=== PATIENT | male | born 1960 | race African-American/Black ===

== ENCOUNTER 2017-04-06 12:22 | Observation (INO) | payer OTHER ==
[~2017-04-06] VITALS: Ht 170.2 cm; Wt 186.0 kg
[~2017-04-06 12:22] MED LIST: ADVAIR 250/501 DISK IH; ADVAIR 500/501 DISK IH; ADVAIR HFA120 INHALA IH; ALDACTONE50 MG PO; AMLODIPINE BESY10 MG PO; APRESOLINE100 MG PO; APRESOLINE50 MG PO; AQUAPHOR OINTM105 GM TP; ASPIRIN325 MG PO; ASPIRIN81 M2 GT; ASPIRIN81 M2 PO; ATROVENT H200 INHALA IH; Apresoline PO; Aspirin PO; CALCIUM 500 +1 EACH PO; CARDIZEM CD,CA180 MG PO; CARDIZEM CD360 MG PO; CARDIZEM90 MG PO; CARDURA4 MG PO; CARDURA8 MG PO; CATAPRES0.1 MG PO; CATAPRES0.2 MG PO; CEFEPIME HCL1 GM IV; CIPRO500 MG PO; CLONIDINE HCL0.1 MG PO; COLACE100 MG PO; COMBIVENT200 INHALA IH; COUMADIN1 MG PO; COUMADIN2 MG PO; COUMADIN2.5 MG PO; COUMADIN3 MG PO; COUMADIN4 MG PO; COUMADIN5 MG PO; COZAAR100 MG PO; CYANOCOBALAM1000 MCG PO; Catapres PO; DOXAZOSIN MESYLA4 MG PO; DOXAZOSIN MESYLA8 MG PO; DULCOLAX10 MG PR; DUONEB 2.5-0.5 M3 ML AEROSOL; DUONEB 2.5-0.5 M3 ML IH; DUONEB 2.5-0.5 M3 ML PEP; DURAGESIC25 MCG TD; DuoNeb IH; ENEMA133 M2 PR; ESCITALOPRAM OX10 MG PO; FEOSOL325 MG PO; FERROUS SULFAT325 MG PO; FLEET ENEMA-AD118 ML PR; FLORASTOR250 MG PO; FLUOXETINE HCL20 MG PO; FLUOXETINE HCL40 MG PO; FUROSEMIDE40 MG PO; GUAIFENESIN400 MG PO; HEPARIN SO5000 UNITS SC; HYDRALAZINE HCL50 MG PO; HYDROCHLOROTHIA25 MG PO; HYDROCODON-ACE1 EAC7 PO; HYDROPHOR228 GM TP; IPRATR-ALBUTEROL3 ML IH; IRON325 M1 PO; IRON325 MG PO; ISORDIL TITRADOS5 MG PO; ISOSORBIDE DINI20 MG PO; K-DUR20 MEQ PO; KADIAN30 MG PO; KLOR-CON 1010 ME1 PO; KLOR-CON M1010 MEQ PO; KLOR-CON M2020 MEQ PO; LASIX20 MG PO; LASIX40 MG PO; LASIX80 MG PO; LEVAQUIN500 MG PO; LEVAQUIN750 MG PO; LEXAPRO10 MG PO; LEXAPRO5 MG PO; LIDOCAINE700 MG TD; LIDODERM 5% P1 PATCH TD; LIDOPATCH1 EACH TD; LISINOPRIL10 MG PO; LISINOPRIL20 MG PO; LISINOPRIL40 MG PO; LOPRESSOR100 M1 PO; LOPRESSOR50 MG PO; LOSARTAN POTAS100 MG PO; LYRICA75 MG PO; Lasix PO; Lopressor PO; METOPROLOL SUCC50 MG PO; METOPROLOL TAR100 MG PO; METOPROLOL TART50 MG PO; MILK OF MAGN PO; MIRALAX17 GM PO; MIRALAX255 GM PO; MORPHINE SULFAT30 M5 PO; MS CONTIN,ORAMO30 MG PO; NORMODYNE,TRAN300 MG PO; NORVASC10 MG PO; NOVOLOG PE100 UNITS/ SC; Normodyne,Trandate PO; OMEPRAZOLE20 MG PO; PANTOPRAZOLE SO40 MG PO; PERCOCET 10/1 TABLET PO; PERCOCET 5/31 TABLET PO; PERCOCET 7.51 TABLET PO; PHILLIPS'400 MG/5 M PO; POLYETHYLENE GL17 GM PO; PREDNISONE10 MG PO; PREDNISONE20 MG PO; PREDNISONE5 MG PO; PRILOSEC20 MG PO; PRILOSEC40 MG PO; PROAIR HFA8.5 GM IH; PROTONIX40 MG PO; PROVENTIL,2.5 MG/3 M IH; PROZAC20 MG PO; Potassium Chloride 1 PO; Protonix PO; ROXICET 5-3251 EACH PO; SENOKOT S,PE1 TABLET PO; SINGULAIR10 MG PO; SOLU-MEDRO125 MG/21 IV; SUPPOSITORY1 EACH PR; TRAMADOL HCL50 MG PO; TRANDATE100 MG PO; TRANSDERM-SCO1 PATCH TD; TYLENOL REGULA325 MG PO; Tums,OsCal PO; ULTRAM50 MG PO; VITAMIN K PO; Vancocin Oral Solution PO; WARFARIN SODIUM1 MG PO; WARFARIN SODIUM3 MG PO; WARFARIN SODIUM4 MG PO; ZYVOX600 MG PO; Zestril,Prinivil PO; [UNRECOGNIZED DRUG - OTHER]; predniSONE PO
[2017-04-06 13:17] LABS: EOSINOPHIL (%) 3.9 % (0-5); EOSINOPHIL COUNT 0.4 K/uL (0-0.3); HEMATOCRIT 28.4 % (38.0-50.0); IMMATURE GRANULOCYTE (%) 0.4 % (0.0-0.7); INSTRUMENT ABS NEUTROPHIL CT 6.7 K/uL; LYMPHOCYTE COUNT 1.2 K/uL (1.0-2.8); MCH 29.5 PG (29.0-34.0); MCHC 33.5 G/DL (30.0-36.0); MCV 88.2 FL (86-99); MEAN PLAT.VOLUME 9.3 uM^3 (9.0-12.4); MONOCYTE (%) 9.2 % (3-12); MONOCYTE COUNT 0.8 K/uL (0-0.8); NEUTROPHIL (%) 73.3 % (45-76); NEUTROPHIL COUNT 6.7 K/uL (1.8-6.4); PLATELET COUNT 268 K/uL (156-360); RBC DIS.WIDTH-CV 14.8 % (11.8-14.6); RBC DIS.WIDTH-SD 47.8 % (39-53); RED BLOOD COUNT 3.22 M/uL (4.00-5.50); WHITE BLOOD COUNT 9.2 K/uL (4.1-10.2)
[2017-04-06 13:27] LABS: CHLORIDE 106 mEq/L (99-109); POTASSIUM 4.5 mEq/L (3.7-5.4); SODIUM 141 mEq/L (136-147)
[2017-04-06 13:28] LABS: GLUCOSE 101 mg/dL (70-99)
[2017-04-06 13:30] LABS: ANION GAP 11 MEQ/L (2-14)
[2017-04-06 13:32] LABS: GFR ESTIMATE (CALCULATED) 38 mL/min/
[2017-04-06 13:33] LABS: UREA NITROGEN (BUN) 29 mg/dL (9-23)
[2017-04-06] MEDS ORDERED: AMLODIPINE BESY10 MG PO (15:59)
[2017-04-06] MEDS ORDERED: ZYLOPRIM100 MG PO (15:59)
[2017-04-06] MEDS ORDERED: ALDACTONE25 MG PO (16:00)
[2017-04-06] MEDS ORDERED: LISINOPRIL20 MG PO (16:01)
[2017-04-06] MEDS ORDERED: ZANTAC150 MG PO (16:02)
[2017-04-06] MEDS ORDERED: DUONEB 2.5-0.5 M3 ML AEROSOL (16:02)
[2017-04-06] MEDS ORDERED: GABAPENTIN100 MG PO (16:03)
[2017-04-06] MEDS ORDERED: FUROSEMIDE40 MG PO (16:06)
[2017-04-06] MEDS ORDERED: NITROSTAT0.4 MG SL (16:06)
[2017-04-06 16:12] LABS: TROP-I INTERPRETATION NEGATIVE; TROPONIN-I 0.02 ng/mL (0.0-0.30)
[2017-04-06 17:59] VITALS: BP 152/58
[2017-04-06 19:19] LABS: METH RESISTANT S AUREUS PCR POSITIVE (NEGATIVE)
[2017-04-06 19:33] LABS: PROBE CHECK PASS
[2017-04-06 20:00] VITALS: BP 128/58
[2017-04-07 00:34] VITALS: BP 117/66
[2017-04-07 04:31] VITALS: BP 117/68
[2017-04-07 07:38] LABS: ALKALINE PHOSPHATASE 81 IU/L (3-129); ANION GAP 12 MEQ/L (2-14); CHLORIDE 105 MEQ/L (99-109); GFR ESTIMATE (CALCULATED) 33 mL/min/; GLUCOSE 90 mg/dL (70-99); POTASSIUM 4.8 MEQ/L (3.7-5.4); SAMPLE HEMOLYSIS CHECK 0; SAMPLE ICTERIC CHECK 0; SAMPLE LIPEMIA CHECK 0; SODIUM 141 MEQ/L (136-147); TOTAL BILIRUBIN 0.5 MG/DL (0.0-1.0); UREA NITROGEN (BUN) 36 mg/dL (9-23)
[2017-04-07 08:42] LABS: HEMATOCRIT 28.7 % (38.0-50.0); MCH 29.4 PG (29.0-34.0); MCHC 33.1 G/DL (30.0-36.0); MCV 88.9 FL (86-99); MEAN PLAT.VOLUME 9.7 uM^3 (9.0-12.4); PLATELET COUNT 280 K/uL (156-360); RBC DIS.WIDTH-CV 14.9 % (11.8-14.6); RBC DIS.WIDTH-SD 48.8 % (39-53); RED BLOOD COUNT 3.23 M/uL (4.00-5.50)
[2017-04-07 12:15] VITALS: BP 105/53
[2017-04-07 16:12] VITALS: BP 105/46
[2017-04-07] MEDS ORDERED: LOVENOX40 MG/0.4 SC (16:45)
[2017-04-07] MEDS ORDERED: KLOR-CON M1010 MEQ PO (16:45)
[2017-04-07] MEDS ORDERED: APRESOLINE100 MG PO (16:45)
== END 2017-04-07 20:15 ==
LOC: EME 12:22 → EDOF 15:10 → ENRESERV 15:37 → 5WEST 17:09
PROVIDERS: Emergency Medicine; Internal Medicine
DX: I13.0 Hypertensive heart and chronic kidney disease with heart failure and stage 1 through stage 4 chronic kidney disease, or unspecified chronic kidney disease (principal); N18.9 Chronic kidney disease, unspecified; I50.32 Chronic diastolic (congestive) heart failure; J96.90 Respiratory failure, unspecified, unspecified whether with hypoxia or hypercapnia; M48.00 Spinal stenosis, site unspecified; Z74.01 Bed confinement status; Z79.891 Long term (current) use of opiate analgesic; M10.9 Gout, unspecified; F41.9 Anxiety disorder, unspecified; F32.9 Major depressive disorder, single episode, unspecified; J44.9 Chronic obstructive pulmonary disease, unspecified; D64.9 Anemia, unspecified; E66.01 Morbid (severe) obesity due to excess calories; Z68.44 Body mass index [BMI] 60.0-69.9, adult; G47.33 Obstructive sleep apnea (adult) (pediatric); K59.00 Constipation, unspecified; Z86.14 Personal history of Methicillin resistant Staphylococcus aureus infection; Z88.0 Allergy status to penicillin
CPT/HCPCS: 71010; 80048; 80053; 83880; 84484; 85025; 85027; 87641; 93005; 94640; 94640 76; 94760; 94799; 99202; G0378; J1650; J1940

== ENCOUNTER 2017-04-11 14:34 | Inpatient (IN) | payer OTHER ==
[~2017-04-11] VITALS: Ht 171.4 cm; Wt 168.8 kg
[~2017-04-11 14:34] MED LIST changes: +ALDACTONE25 MG PO; +GABAPENTIN100 MG PO; +LOVENOX40 MG/0.4 SC; +NITROSTAT0.4 MG SL; +ZANTAC150 MG PO; +ZYLOPRIM100 MG PO
[2017-04-11 17:01] LABS: HEMATOCRIT 30.6 % (38.0-50.0); MCH 29.6 PG (29.0-34.0); MCHC 32.4 G/DL (30.0-36.0); MCV 91.3 FL (86-99); MEAN PLAT.VOLUME 9.3 uM^3 (9.0-12.4); PLATELET COUNT 284 K/uL (156-360); RBC DIS.WIDTH-CV 15.3 % (11.8-14.6); RED BLOOD COUNT 3.35 M/uL (4.00-5.50); WHITE BLOOD COUNT 9.7 K/uL (4.1-10.2)
[2017-04-11 17:10] LABS: CHLORIDE 107 mEq/L (99-109); SODIUM 139 mEq/L (136-147)
[2017-04-11 17:11] LABS: GLUCOSE 99 mg/dL (70-99)
[2017-04-11 17:12] LABS: ANION GAP 10 MEQ/L (2-14)
[2017-04-11 17:24] LABS: GFR ESTIMATE (CALCULATED) 15 mL/min/; POTASSIUM 6.7 mEq/L (3.7-5.4); UREA NITROGEN (BUN) 61 mg/dL (9-23)
[2017-04-11 18:53] LABS: CHLORIDE 108 mEq/L (99-109); SODIUM 139 mEq/L (136-147)
[2017-04-11 18:54] LABS: GLUCOSE 102 mg/dL (70-99)
[2017-04-11 18:56] LABS: ANION GAP 11 MEQ/L (2-14)
[2017-04-11 18:58] LABS: GFR ESTIMATE (CALCULATED) 16 mL/min/
[2017-04-11 18:59] LABS: UREA NITROGEN (BUN) 64 mg/dL (9-23)
[2017-04-11 19:01] LABS: POTASSIUM 6.9 mEq/L (3.7-5.4)
[2017-04-11] MEDS ORDERED: LASIX20 MG PO (20:23)
[2017-04-12] VITALS (7 sets, daily range): BP systolic 125–155; BP diastolic 57–84
[2017-04-12 06:10] LABS: POINT-OF-CARE METER ID UU13113725
[2017-04-12 06:40] LABS: ANION GAP 9 MEQ/L (2-14); CHLORIDE 107 MEQ/L (99-109); GFR ESTIMATE (CALCULATED) 16 mL/min/; GLUCOSE 92 mg/dL (70-99); POTASSIUM 6.2 MEQ/L (3.7-5.4); SAMPLE HEMOLYSIS CHECK 0; SAMPLE ICTERIC CHECK 0; SAMPLE LIPEMIA CHECK 0; SODIUM 137 MEQ/L (136-147); UREA NITROGEN (BUN) 62 mg/dL (9-23)
[2017-04-12 11:49] LABS: POINT-OF-CARE METER ID UU13113725
[2017-04-12 15:25] LABS: ANION GAP 11 MEQ/L (2-14); CHLORIDE 108 MEQ/L (99-109); GFR ESTIMATE (CALCULATED) 17 mL/min/; GLUCOSE 100 mg/dL (70-99); POTASSIUM 5.5 MEQ/L (3.7-5.4); SAMPLE HEMOLYSIS CHECK 0; SAMPLE ICTERIC CHECK 0; SAMPLE LIPEMIA CHECK 0; SODIUM 139 MEQ/L (136-147); UREA NITROGEN (BUN) 65 mg/dL (9-23)
[2017-04-12 16:10] LABS: POINT-OF-CARE METER ID UU13113725
[2017-04-13 06:58] LABS: ANION GAP 10 MEQ/L (2-14); CHLORIDE 110 MEQ/L (99-109); GFR ESTIMATE (CALCULATED) 19 mL/min/; GLUCOSE 84 mg/dL (70-99); POTASSIUM 5.7 MEQ/L (3.7-5.4); SAMPLE HEMOLYSIS CHECK 0; SAMPLE ICTERIC CHECK 0; SAMPLE LIPEMIA CHECK 0; SODIUM 140 MEQ/L (136-147); UREA NITROGEN (BUN) 61 mg/dL (9-23)
[2017-04-13 07:08] VITALS: BP 131/56
[2017-04-13 10:51] VITALS: BP 128/59
[2017-04-13 11:53] VITALS: BP 100/51
[2017-04-13 15:57] VITALS: BP 160/71
[2017-04-13 17:52] VITALS: BP 118/73
[2017-04-13 21:01] VITALS: BP 144/65
[2017-04-13 21:57] LABS: POINT-OF-CARE METER ID UU13113725
[2017-04-14 01:02] VITALS: BP 148/65
[2017-04-14 06:03] LABS: POINT-OF-CARE METER ID UU13113725
[2017-04-14 07:03] LABS: ANION GAP 9 MEQ/L (2-14); CHLORIDE 112 MEQ/L (99-109); GFR ESTIMATE (CALCULATED) 22 mL/min/; GLUCOSE 81 mg/dL (70-99); POTASSIUM 5.1 MEQ/L (3.7-5.4); SAMPLE HEMOLYSIS CHECK 0; SAMPLE ICTERIC CHECK 0; SAMPLE LIPEMIA CHECK 0; SODIUM 144 MEQ/L (136-147); UREA NITROGEN (BUN) 58 mg/dL (9-23)
[2017-04-14 07:10] VITALS: BP 151/67
[2017-04-14 11:48] VITALS: BP 139/63
[2017-04-14 16:06] VITALS: BP 173/80
[2017-04-14 23:36] VITALS: BP 157/69
[2017-04-15] VITALS (9 sets, daily range): BP systolic 123–145; BP diastolic 56–74
[2017-04-15 06:58] LABS: ANION GAP 8 MEQ/L (2-14); CHLORIDE 111 MEQ/L (99-109); GFR ESTIMATE (CALCULATED) 27 mL/min/; GLUCOSE 89 mg/dL (70-99); POTASSIUM 4.7 MEQ/L (3.7-5.4); SAMPLE HEMOLYSIS CHECK 0; SAMPLE ICTERIC CHECK 0; SAMPLE LIPEMIA CHECK 0; SODIUM 141 MEQ/L (136-147); UREA NITROGEN (BUN) 54 mg/dL (9-23)
[2017-04-15] MEDS ORDERED: HEPARIN SO5000 UNIT4 SC (12:24)
== END 2017-04-15 18:20 | DRG 683 ==
LOC: EME 14:34 → 5EAST 18:30 → EDOF 18:30 → ENRESERV 18:30 → 5EAST 21:07 → ENPENDDIS 04-15 → 5EAST 04-15 18:20
PROVIDERS: Family Medicine; Internal Medicine Nephrology; Physician Assistant
PROC: 5A09357 Assistance with Respiratory Ventilation, Less than 24 Consecutive Hours, Continuous Positive Airway Pressure (ICD-10-PCS; principal; 2017-04-11)
DX: N17.9 Acute kidney failure, unspecified (principal); I13.0 Hypertensive heart and chronic kidney disease with heart failure and stage 1 through stage 4 chronic kidney disease, or unspecified chronic kidney disease; I50.32 Chronic diastolic (congestive) heart failure; E11.22 Type 2 diabetes mellitus with diabetic chronic kidney disease; N18.3 Chronic kidney disease, stage 3 (moderate); E87.5 Hyperkalemia; R33.9 Retention of urine, unspecified; R41.82 Altered mental status, unspecified; D63.1 Anemia in chronic kidney disease; G47.33 Obstructive sleep apnea (adult) (pediatric); J44.9 Chronic obstructive pulmonary disease, unspecified; E66.01 Morbid (severe) obesity due to excess calories; Z68.43 Body mass index [BMI] 50.0-59.9, adult; G89.29 Other chronic pain; M19.90 Unspecified osteoarthritis, unspecified site; M48.00 Spinal stenosis, site unspecified; G43.909 Migraine, unspecified, not intractable, without status migrainosus; E78.5 Hyperlipidemia, unspecified; F32.9 Major depressive disorder, single episode, unspecified; I25.2 Old myocardial infarction; Z82.49 Family history of ischemic heart disease and other diseases of the circulatory system; Z87.891 Personal history of nicotine dependence; Z99.81 Dependence on supplemental oxygen
CPT/HCPCS: 71010; 76770; 80048; 80048 91; 80069; 82948; 84132 91; 85027; 93005; 94640; 94640 76; 94660; 94799; 99202; 99281; 99285; J1644; J1815; J7030; J7040

== ENCOUNTER 2017-07-03 12:22 | Inpatient (IN) | payer OTHER ==
[~2017-07-03] VITALS: Ht 170.2 cm; Wt 173.2 kg
[2017-07-03] VITALS (9 sets, daily range): BP systolic 129–176; BP diastolic 58–76
[~2017-07-03 12:22] MED LIST changes: +FUROSEMIDE20 MG PO; +HEPARIN SO5000 UNIT4 SC; -IRON325 MG PO; +PROCRIT10000 UNI1 IV; +REGLAN10 MG PO
[2017-07-03 13:32] LABS: HEMATOCRIT 22.3 % (38.0-50.0); MCH 29.2 PG (29.0-34.0); MCHC 33.2 G/DL (30.0-36.0); MCV 88.1 FL (86-99); MEAN PLAT.VOLUME 9.4 uM^3 (9.0-12.4); PLATELET COUNT 245 K/uL (156-360); RBC DIS.WIDTH-CV 15.7 % (11.8-14.6); RBC DIS.WIDTH-SD 50.4 % (39-53); RED BLOOD COUNT 2.53 M/uL (4.00-5.50); WHITE BLOOD COUNT 7.7 K/uL (4.1-10.2)
[2017-07-03 13:59] LABS: ANION GAP 11 MEQ/L (2-14); CHLORIDE 104 MEQ/L (99-109); GFR ESTIMATE (CALCULATED) 42 mL/min/; GLUCOSE 95 mg/dL (70-99); POTASSIUM 3.7 MEQ/L (3.7-5.4); SAMPLE HEMOLYSIS CHECK 0; SAMPLE ICTERIC CHECK 0; SAMPLE LIPEMIA CHECK 0; SODIUM 143 MEQ/L (136-147); UREA NITROGEN (BUN) 17 mg/dL (9-23)
[2017-07-03 14:29] LABS: TROP-I INTERPRETATION NEGATIVE; TROPONIN-I 0.01 ng/mL (0.0-0.30)
[2017-07-04] VITALS (19 sets, daily range): BP systolic 134–186; BP diastolic 63–85
[2017-07-04 09:06] LABS: EOSINOPHIL (%) 4.6 % (0-5); EOSINOPHIL COUNT 0.4 K/uL (0-0.3); IMMATURE GRANULOCYTE (%) 0.7 % (0.0-0.7); IMMATURE GRANULOCYTE COUNT 0.1 K/uL; LYMPHOCYTE COUNT 0.9 K/uL (1.0-2.8); MCH 28.4 PG (29.0-34.0); MCV 86.3 FL (86-99); MEAN PLAT.VOLUME 9.1 uM^3 (9.0-12.4); MONOCYTE (%) 8.6 % (3-12); MONOCYTE COUNT 0.8 K/uL (0-0.8); NEUTROPHIL (%) 76.3 % (45-76); PLATELET COUNT 240 K/uL (156-360); RBC DIS.WIDTH-CV 15.4 % (11.8-14.6); WHITE BLOOD COUNT 9.1 K/uL (4.1-10.2)
[2017-07-04 09:09] LABS: RED BLOOD COUNT 3.13 M/uL (4.00-5.50)
[2017-07-04 09:27] LABS: Estimated Average Glucose 105 mg/dL (70-123)
[2017-07-04 09:29] LABS: ALKALINE PHOSPHATASE 82 IU/L (3-129); ANION GAP 12 MEQ/L (2-14); CHLORIDE 101 MEQ/L (99-109); GFR ESTIMATE (CALCULATED) 47 mL/min/; GLUCOSE 107 mg/dL (70-99); HDL CHOLESTEROL 36 MG/DL (Desirable>=40); LDL CHOLESTEROL 126 mg/dL (Desirable<100); NON-HDL CHOLESTEROL 149 mg/dL (Desirable<160); POTASSIUM 3.4 MEQ/L (3.7-5.4); SAMPLE HEMOLYSIS CHECK 0; SAMPLE ICTERIC CHECK 0; SAMPLE LIPEMIA CHECK 0; SODIUM 143 MEQ/L (136-147); TOTAL CHOLESTEROL 185 mg/dL (Desirable<200); TRIGLYCERIDES 115 MG/DL (Normal: <150); UREA NITROGEN (BUN) 19 mg/dL (9-23)
[2017-07-04 09:40] LABS: HEMOGLOBIN A1c (GLYCOHEMOGLOB) 5.3 % HGB (Below 5.7)
[2017-07-05 03:29] VITALS: BP 145/65
[2017-07-05 07:43] VITALS: BP 186/84
[2017-07-05 12:03] VITALS: BP 140/66
[2017-07-05 16:19] VITALS: BP 139/62
[2017-07-05 16:47] LABS: EOSINOPHIL (%) 4.6 % (0-5); EOSINOPHIL COUNT 0.4 K/uL (0-0.3); HEMATOCRIT 32.5 % (38.0-50.0); IMMATURE GRANULOCYTE (%) 0.7 % (0.0-0.7); IMMATURE GRANULOCYTE COUNT 0.1 K/uL; INSTRUMENT ABS NEUTROPHIL CT 6.3 K/uL; MCH 29.1 PG (29.0-34.0); MCHC 33.5 G/DL (30.0-36.0); MCV 86.7 FL (86-99); MEAN PLAT.VOLUME 9.1 uM^3 (9.0-12.4); NEUTROPHIL (%) 71.4 % (45-76); NEUTROPHIL COUNT 6.3 K/uL (1.8-6.4); PLATELET COUNT 247 K/uL (156-360); RBC DIS.WIDTH-CV 15.2 % (11.8-14.6); RBC DIS.WIDTH-SD 47.7 % (39-53); RED BLOOD COUNT 3.75 M/uL (4.00-5.50); WHITE BLOOD COUNT 8.7 K/uL (4.1-10.2)
[2017-07-05 16:51] LABS: ANION GAP 10 MEQ/L (2-14); CHLORIDE 100 MEQ/L (99-109); POTASSIUM 3.8 MEQ/L (3.7-5.4); SAMPLE HEMOLYSIS CHECK 0; SAMPLE ICTERIC CHECK 0; SAMPLE LIPEMIA CHECK 0; SODIUM 140 MEQ/L (136-147)
[2017-07-05 17:01] LABS: GFR ESTIMATE (CALCULATED) 36 mL/min/; GLUCOSE 96 mg/dL (70-99); UREA NITROGEN (BUN) 26 mg/dL (9-23)
[2017-07-05 19:41] VITALS: BP 151/70
[2017-07-05 23:50] VITALS: BP 146/88
[2017-07-06 03:34] VITALS: BP 143/61
[2017-07-06 08:02] VITALS: BP 178/81
[2017-07-06 11:31] VITALS: BP 142/66
[2017-07-06 15:37] VITALS: BP 134/60
[2017-07-06 23:46] VITALS: BP 157/70
[2017-07-07 04:36] VITALS: BP 153/75
[2017-07-07 07:34] LABS: EOSINOPHIL (%) 5.2 % (0-5); EOSINOPHIL COUNT 0.4 K/uL (0-0.3); HEMATOCRIT 30.1 % (38.0-50.0); IMMATURE GRANULOCYTE (%) 0.6 % (0.0-0.7); IMMATURE GRANULOCYTE COUNT 0.1 K/uL; INSTRUMENT ABS NEUTROPHIL CT 5.5 K/uL; LYMPHOCYTE COUNT 1.1 K/uL (1.0-2.8); MCH 29.7 PG (29.0-34.0); MCHC 33.9 G/DL (30.0-36.0); MCV 87.8 FL (86-99); MEAN PLAT.VOLUME 9.2 uM^3 (9.0-12.4); MONOCYTE (%) 11.7 % (3-12); MONOCYTE COUNT 0.9 K/uL (0-0.8); NEUTROPHIL (%) 68.1 % (45-76); NEUTROPHIL COUNT 5.5 K/uL (1.8-6.4); PLATELET COUNT 223 K/uL (156-360); RBC DIS.WIDTH-CV 14.9 % (11.8-14.6); RBC DIS.WIDTH-SD 47.6 % (39-53); RED BLOOD COUNT 3.43 M/uL (4.00-5.50)
[2017-07-07 08:31] VITALS: BP 170/80
[2017-07-07 08:35] LABS: ANION GAP 10 MEQ/L (2-14); CHLORIDE 101 MEQ/L (99-109); GFR ESTIMATE (CALCULATED) 34 mL/min/; GLUCOSE 88 mg/dL (70-99); MAGNESIUM 1.9 mg/dl (1.3-2.7); POTASSIUM 3.6 MEQ/L (3.7-5.4); SAMPLE HEMOLYSIS CHECK 0; SAMPLE ICTERIC CHECK 0; SAMPLE LIPEMIA CHECK 0; SODIUM 141 MEQ/L (136-147); UREA NITROGEN (BUN) 31 mg/dL (9-23)
[2017-07-07 12:23] VITALS: BP 154/68
[2017-07-07 13:28] LABS: ADD MIUA? NO; BILIRUBIN NEGATIVE; BLOOD NEGATIVE; COLOR YELLOW ((YELLOW)); GLUCOSE (STRIP) NEGATIVE; KETONES NEGATIVE; LEUKOCYTES NEGATIVE; NITRITE NEGATIVE; PROTEIN (STRIP) 30; SPECIFIC GRAVITY 1.012 (1.000-1.030); UROBILINOGEN 0.2 MG/DL (0.2-1.0)
[2017-07-07 16:10] VITALS: BP 126/59
[2017-07-07 19:38] VITALS: BP 138/65
[2017-07-07 23:19] VITALS: BP 122/57
[2017-07-08 03:45] VITALS: BP 140/62
[2017-07-08 07:00] LABS: EOSINOPHIL (%) 5.3 % (0-5); EOSINOPHIL COUNT 0.4 K/uL (0-0.3); HEMATOCRIT 30.1 % (38.0-50.0); IMMATURE GRANULOCYTE (%) 0.3 % (0.0-0.7); INSTRUMENT ABS NEUTROPHIL CT 4.8 K/uL; LYMPHOCYTE COUNT 1.1 K/uL (1.0-2.8); MCH 28.5 PG (29.0-34.0); MCHC 32.9 G/DL (30.0-36.0); MCV 86.7 FL (86-99); MEAN PLAT.VOLUME 9.2 uM^3 (9.0-12.4); MONOCYTE (%) 11.7 % (3-12); MONOCYTE COUNT 0.8 K/uL (0-0.8); NEUTROPHIL COUNT 4.8 K/uL (1.8-6.4); PLATELET COUNT 234 K/uL (156-360); RBC DIS.WIDTH-CV 14.8 % (11.8-14.6); RBC DIS.WIDTH-SD 46.8 % (39-53); RED BLOOD COUNT 3.47 M/uL (4.00-5.50); WHITE BLOOD COUNT 7.1 K/uL (4.1-10.2)
[2017-07-08 07:25] LABS: ANION GAP 11 MEQ/L (2-14); CHLORIDE 104 MEQ/L (99-109); GFR ESTIMATE (CALCULATED) 38 mL/min/; GLUCOSE 83 mg/dL (70-99); POTASSIUM 3.5 MEQ/L (3.7-5.4); SAMPLE HEMOLYSIS CHECK 0; SAMPLE ICTERIC CHECK 0; SAMPLE LIPEMIA CHECK 0; SODIUM 144 MEQ/L (136-147); UREA NITROGEN (BUN) 31 mg/dL (9-23)
[2017-07-08 07:53] VITALS: BP 165/74
[2017-07-08 11:04] VITALS: BP 146/65
[2017-07-08] MEDS ORDERED: LASIX20 MG PO (13:03)
[2017-07-08] MEDS ORDERED: CEFTIN500 MG PO (13:03)
== END 2017-07-08 15:17 | DRG 682 ==
LOC: EME 12:22 → EDOF 14:43 → 3EAST 14:43 → ENRESERV 15:10 → 3EAST 17:51
PROVIDERS: Emergency Medicine; Family Medicine; Internal Medicine Nephrology
PROC: 30233N1 Transfusion of Nonautologous Red Blood Cells into Peripheral Vein, Percutaneous Approach (ICD-10-PCS; principal; 2017-07-03)
DX: N17.9 Acute kidney failure, unspecified (principal); I13.0 Hypertensive heart and chronic kidney disease with heart failure and stage 1 through stage 4 chronic kidney disease, or unspecified chronic kidney disease; N18.4 Chronic kidney disease, stage 4 (severe); D63.1 Anemia in chronic kidney disease; J18.9 Pneumonia, unspecified organism; J44.0 Chronic obstructive pulmonary disease with (acute) lower respiratory infection; J44.1 Chronic obstructive pulmonary disease with (acute) exacerbation; E11.22 Type 2 diabetes mellitus with diabetic chronic kidney disease; I50.9 Heart failure, unspecified; E66.01 Morbid (severe) obesity due to excess calories; Z68.43 Body mass index [BMI] 50.0-59.9, adult; G47.33 Obstructive sleep apnea (adult) (pediatric); E78.5 Hyperlipidemia, unspecified; E87.6 Hypokalemia; I25.10 Atherosclerotic heart disease of native coronary artery without angina pectoris; I25.2 Old myocardial infarction; I48.91 Unspecified atrial fibrillation; K21.9 Gastro-esophageal reflux disease without esophagitis; M10.9 Gout, unspecified; M48.00 Spinal stenosis, site unspecified; M19.90 Unspecified osteoarthritis, unspecified site; G89.29 Other chronic pain; R26.9 Unspecified abnormalities of gait and mobility; F32.9 Major depressive disorder, single episode, unspecified; Z87.891 Personal history of nicotine dependence; Z86.14 Personal history of Methicillin resistant Staphylococcus aureus infection; Z88.0 Allergy status to penicillin
CPT/HCPCS: 71020; 80048; 80053; 80061; 80069; 81003; 83036; 83735; 83880; 84484; 84550; 85025; 85027; 86850; 86900; 86901; 86920; 87040; 93005; 94660; 94799; 99202; 99281; 99285; J0692; J0696; J0881; J1940; J3370; P9016

== ENCOUNTER 2017-07-20 10:15 | Inpatient (IN) | payer OTHER ==
[~2017-07-20] VITALS: Ht 172.7 cm; Wt 167.1 kg
[~2017-07-20 10:15] MED LIST changes: +CEFTIN500 MG PO
[2017-07-20] MEDS ORDERED: LASIX40 MG PO (10:32)
[2017-07-20 11:22] LABS: EOSINOPHIL (%) 4.7 % (0-5); EOSINOPHIL COUNT 0.4 K/uL (0-0.3); HEMATOCRIT 30.8 % (38.0-50.0); IMMATURE GRANULOCYTE (%) 0.8 % (0.0-0.7); IMMATURE GRANULOCYTE COUNT 0.1 K/uL; INSTRUMENT ABS NEUTROPHIL CT 6.4 K/uL; MCH 28.7 PG (29.0-34.0); MCHC 32.8 G/DL (30.0-36.0); MCV 87.5 FL (86-99); MONOCYTE COUNT 0.8 K/uL (0-0.8); NEUTROPHIL (%) 74.3 % (45-76); NEUTROPHIL COUNT 6.4 K/uL (1.8-6.4); PLATELET COUNT 252 K/uL (156-360); RBC DIS.WIDTH-CV 15.3 % (11.8-14.6); RBC DIS.WIDTH-SD 48.6 % (39-53); RED BLOOD COUNT 3.52 M/uL (4.00-5.50); WHITE BLOOD COUNT 8.6 K/uL (4.1-10.2)
[2017-07-20 11:30] LABS: CHLORIDE 105 mEq/L (99-109); POTASSIUM 3.7 mEq/L (3.7-5.4); SODIUM 143 mEq/L (136-147)
[2017-07-20 11:32] LABS: GLUCOSE 98 mg/dL (70-99)
[2017-07-20 11:34] LABS: ANION GAP 12 MEQ/L (2-14)
[2017-07-20 11:36] LABS: ALKALINE PHOSPHATASE 83 IU/L (3-129); GFR ESTIMATE (CALCULATED) 50 mL/min/ (58.99-99999)
[2017-07-20 11:37] LABS: UREA NITROGEN (BUN) 21 mg/dL (9-23)
[2017-07-20 11:39] LABS: CREATINE KINASE 113 IU/L (1-294); TOTAL CK 113 IU/L (1-294)
[2017-07-20 11:42] LABS: TROP-I INTERPRETATION NEGATIVE; TROPONIN-I 0.01 ng/mL (0.0-0.30)
[2017-07-20 11:46] LABS: CK-MB 1.1 ng/mL (0.0-4.9)
[2017-07-20 14:14] VITALS: BP 148/65
[2017-07-20 16:35] VITALS: BP 141/65
[2017-07-20] MEDS ORDERED: EPOGEN,PRO10000 UNIT SC (17:20)
[2017-07-20 18:46] LABS: TROP-I INTERPRETATION NEGATIVE; TROPONIN-I 0.02 ng/mL (0.0-0.30)
[2017-07-20 19:30] VITALS: BP 129/58
[2017-07-20 23:28] LABS: TROP-I INTERPRETATION NEGATIVE; TROPONIN-I 0.02 ng/mL (0.0-0.30)
[2017-07-21 00:05] VITALS: BP 146/60
[2017-07-21 02:04] LABS: METH RESISTANT S AUREUS PCR POSITIVE (NEGATIVE)
[2017-07-21 02:17] LABS: PROBE CHECK PASS
[2017-07-21 04:00] VITALS: BP 146/63
[2017-07-21 05:56] LABS: MCH 28.6 PG (29.0-34.0); MCHC 32.8 G/DL (30.0-36.0); MCV 87.3 FL (86-99); MEAN PLAT.VOLUME 9.6 uM^3 (9.0-12.4); PLATELET COUNT 258 K/uL (156-360); RBC DIS.WIDTH-CV 15.2 % (11.8-14.6); RBC DIS.WIDTH-SD 48.5 % (39-53); RED BLOOD COUNT 3.32 M/uL (4.00-5.50)
[2017-07-21 06:21] LABS: ANION GAP 11 MEQ/L (2-14); CHLORIDE 101 MEQ/L (99-109); GFR ESTIMATE (CALCULATED) 42 mL/min/ (58.99-99999); GLUCOSE 90 mg/dL (70-99); POTASSIUM 3.6 MEQ/L (3.7-5.4); SAMPLE HEMOLYSIS CHECK 0; SAMPLE ICTERIC CHECK 0; SAMPLE LIPEMIA CHECK 0; SODIUM 143 MEQ/L (136-147); UREA NITROGEN (BUN) 24 mg/dL (9-23)
[2017-07-21 07:45] VITALS: BP 146/65
[2017-07-21 13:17] VITALS: BP 130/58
[2017-07-21 16:55] VITALS: BP 135/73
[2017-07-21 19:00] VITALS: BP 150/60
[2017-07-22] VITALS (7 sets, daily range): BP systolic 116–142; BP diastolic 56–69
[2017-07-22 05:36] LABS: EOSINOPHIL (%) 4.6 % (0-5); EOSINOPHIL COUNT 0.4 K/uL (0-0.3); HEMATOCRIT 29.6 % (38.0-50.0); IMMATURE GRANULOCYTE (%) 0.7 % (0.0-0.7); IMMATURE GRANULOCYTE COUNT 0.1 K/uL; INSTRUMENT ABS NEUTROPHIL CT 5.8 K/uL; LYMPHOCYTE COUNT 1.5 K/uL (1.0-2.8); MCH 28.7 PG (29.0-34.0); MCHC 32.8 G/DL (30.0-36.0); MCV 87.6 FL (86-99); MEAN PLAT.VOLUME 9.7 uM^3 (9.0-12.4); MONOCYTE (%) 10.7 % (3-12); MONOCYTE COUNT 0.9 K/uL (0-0.8); NEUTROPHIL (%) 66.7 % (45-76); NEUTROPHIL COUNT 5.8 K/uL (1.8-6.4); PLATELET COUNT 283 K/uL (156-360); RBC DIS.WIDTH-CV 15.4 % (11.8-14.6); RBC DIS.WIDTH-SD 49.1 % (39-53); RED BLOOD COUNT 3.38 M/uL (4.00-5.50); WHITE BLOOD COUNT 8.8 K/uL (4.1-10.2)
[2017-07-22 06:37] LABS: ANION GAP 11 MEQ/L (2-14); CHLORIDE 101 MEQ/L (99-109); GFR ESTIMATE (CALCULATED) 40 mL/min/ (58.99-99999); GLUCOSE 85 mg/dL (70-99); POTASSIUM 3.5 MEQ/L (3.7-5.4); SAMPLE HEMOLYSIS CHECK 0; SAMPLE ICTERIC CHECK 0; SAMPLE LIPEMIA CHECK 0; SODIUM 143 MEQ/L (136-147); UREA NITROGEN (BUN) 24 mg/dL (9-23)
[2017-07-23 04:21] VITALS: BP 148/72
[2017-07-23 06:54] LABS: ANION GAP 8 MEQ/L (2-14); CHLORIDE 99 MEQ/L (99-109); GFR ESTIMATE (CALCULATED) 34 mL/min/ (58.99-99999); GLUCOSE 101 mg/dL (70-99); POTASSIUM 3.5 MEQ/L (3.7-5.4); SAMPLE HEMOLYSIS CHECK 0; SAMPLE ICTERIC CHECK 0; SAMPLE LIPEMIA CHECK 0; SODIUM 139 MEQ/L (136-147); UREA NITROGEN (BUN) 28 mg/dL (9-23)
[2017-07-23 08:07] VITALS: BP 137/65
[2017-07-23 11:15] VITALS: BP 126/63
[2017-07-23] MEDS ORDERED: LASIX40 MG PO (13:13)
[2017-07-23 16:39] VITALS: BP 162/74
== END 2017-07-23 18:56 | DRG 189 ==
LOC: EME → EDBD 10:15 → EDOF 12:54 → 4EAST 12:54 → ENRESERV 13:02 → EDOF 13:04 → ENRESERV 13:34 → 4EAST 14:08
PROVIDERS: Emergency Medicine; Family Medicine; Internal Medicine Nephrology
PROC: 5A09357 Assistance with Respiratory Ventilation, Less than 24 Consecutive Hours, Continuous Positive Airway Pressure (ICD-10-PCS; principal; 2017-07-20)
DX: J96.21 Acute and chronic respiratory failure with hypoxia (principal); I13.0 Hypertensive heart and chronic kidney disease with heart failure and stage 1 through stage 4 chronic kidney disease, or unspecified chronic kidney disease; I50.33 Acute on chronic diastolic (congestive) heart failure; D63.1 Anemia in chronic kidney disease; E11.22 Type 2 diabetes mellitus with diabetic chronic kidney disease; E11.41 Type 2 diabetes mellitus with diabetic mononeuropathy; E66.01 Morbid (severe) obesity due to excess calories; E78.5 Hyperlipidemia, unspecified; E87.6 Hypokalemia; G47.33 Obstructive sleep apnea (adult) (pediatric); I25.10 Atherosclerotic heart disease of native coronary artery without angina pectoris; I25.2 Old myocardial infarction; I27.20 Pulmonary hypertension, unspecified; I35.0 Nonrheumatic aortic (valve) stenosis; J44.9 Chronic obstructive pulmonary disease, unspecified; K21.9 Gastro-esophageal reflux disease without esophagitis; M10.9 Gout, unspecified; N18.3 Chronic kidney disease, stage 3 (moderate); N17.9 Acute kidney failure, unspecified; Z68.43 Body mass index [BMI] 50.0-59.9, adult; Z86.718 Personal history of other venous thrombosis and embolism; Z86.73 Personal history of transient ischemic attack (TIA), and cerebral infarction without residual deficits; Z87.891 Personal history of nicotine dependence; I48.2 Chronic atrial fibrillation
CPT/HCPCS: 71010; 80048; 80053; 82550; 82553; 83735; 83880; 84484; 85025; 85027; 87641; 93005; 93306; 94640; 94640 76; 94660; 94799; 99202; 99281; 99285; J0881; J1644; J1940

== ENCOUNTER 2017-07-23 19:56 | Emergency (ER) | payer OTHER ==
[~2017-07-23] VITALS: Ht 170.2 cm; Wt 161.9 kg
[~2017-07-23 19:56] MED LIST changes: +EPOGEN,PRO10000 UNIT SC
[2017-07-23 20:34] LABS: HEMATOCRIT 31.5 % (38.0-50.0); MCH 29.1 PG (29.0-34.0); MCHC 33.7 G/DL (30.0-36.0); MCV 86.5 FL (86-99); MEAN PLAT.VOLUME 9.1 uM^3 (9.0-12.4); PLATELET COUNT 301 K/uL (156-360); RBC DIS.WIDTH-CV 15.2 % (11.8-14.6); RED BLOOD COUNT 3.64 M/uL (4.00-5.50); WHITE BLOOD COUNT 9.5 K/uL (4.1-10.2)
[2017-07-23 20:41] LABS: CHLORIDE 100 mEq/L (99-109); POTASSIUM 4.1 mEq/L (3.7-5.4); SODIUM 140 mEq/L (136-147)
[2017-07-23 20:42] LABS: GLUCOSE 104 mg/dL (70-99)
[2017-07-23 20:44] LABS: ANION GAP 12 MEQ/L (2-14)
[2017-07-23 20:46] LABS: GFR ESTIMATE (CALCULATED) 34 mL/min/ (58.99-99999)
[2017-07-23 20:47] LABS: UREA NITROGEN (BUN) 28 mg/dL (9-23)
[2017-07-23 20:53] LABS: TROP-I INTERPRETATION NEGATIVE; TROPONIN-I 0.04 ng/mL (0.0-0.30)
[2017-07-24 00:15] VITALS: BP 128/53
== END 2017-07-24 00:23 ==
LOC: EME 19:56
PROVIDERS: Emergency Medicine
DX: I13.0 Hypertensive heart and chronic kidney disease with heart failure and stage 1 through stage 4 chronic kidney disease, or unspecified chronic kidney disease (principal); I50.9 Heart failure, unspecified; N18.9 Chronic kidney disease, unspecified; Z76.89 Persons encountering health services in other specified circumstances; J44.9 Chronic obstructive pulmonary disease, unspecified; I25.2 Old myocardial infarction; E66.01 Morbid (severe) obesity due to excess calories; F32.9 Major depressive disorder, single episode, unspecified; K21.9 Gastro-esophageal reflux disease without esophagitis; Z88.0 Allergy status to penicillin; Z87.891 Personal history of nicotine dependence
CPT/HCPCS: 71010; 80048 91; 84484; 85027; 93005; 99281; 99285

== ENCOUNTER 2017-10-31 04:06 | Inpatient (IN) | payer OTHER ==
[~2017-10-31] VITALS: Ht 170.2 cm; Wt 155.6 kg
[2017-10-31] VITALS (10 sets, daily range): BP systolic 103–148; BP diastolic 55–71
[2017-10-31 04:55] LABS: BASE EXCESS 4.4 mEq/L (-3 to +3); BICARBONATE 30.5 mEq/L (22-26); CARBOXY HGB 2.6 % (0-5); COMMENTS - BLOOD GASES C+; DEVICE MASK VENT; FI02 50 %; METHEMOGLOBIN 1.1 % (0-1.5); MODE NSPONT; PCO2 54 mm Hg (35-45); PEEP 8 CM/H20; PO2 129 mm Hg (80-100); PRES. SUPPORT 12 CM/H2O; SITE RR; TOTAL RESP RATE 22 resp/min; pH 7.36 (7.35-7.45)
[2017-10-31 05:08] LABS: HEMATOCRIT 21.1 % (38.0-50.0); HEMOGLOBIN 7.2 G/DL (12.5-16.6); MCH 27.9 PG (29.0-34.0); MCHC 34.1 G/DL (30.0-36.0); MCV 81.8 FL (86-99); PLATELET COUNT 267 K/uL (156-360); RBC DIS.WIDTH-CV 16.7 % (11.8-14.6); RBC DIS.WIDTH-SD 49.5 % (39-53); RED BLOOD COUNT 2.58 M/uL (4.00-5.50); WHITE BLOOD COUNT 12.4 K/uL (4.1-10.2)
[2017-10-31 05:11] LABS: CARBON DIOXIDE (BICARBONATE) 30.6 MEQ/L (20-31)
[2017-10-31 05:13] LABS: INTER. NORMALIZED RATIO 1.3
[2017-10-31 05:16] LABS: PTT 29.1 SEC (25-37)
[2017-10-31 05:33] LABS: TROP-I INTERPRETATION NEGATIVE; TROPONIN-I 0.02 ng/mL (0.0-0.30)
[2017-10-31 05:52] LABS: ALBUMIN 3.9 g/dL (3.2-4.8)
[2017-10-31 05:53] LABS: CHLORIDE 105 mEq/L (99-109); POTASSIUM 4.1 mEq/L (3.7-5.4); SODIUM 142 mEq/L (136-147)
[2017-10-31 05:55] LABS: GLUCOSE 106 mg/dL (70-99); TOTAL PROTEIN 9.1 g/dL (6.4-8.3)
[2017-10-31 05:58] LABS: ALKALINE PHOSPHATASE 104 IU/L (3-129)
[2017-10-31 05:59] LABS: CREATININE 2.4 mg/dL (0.6-1.3); GFR ESTIMATE (CALCULATED) 36 mL/min/ (58.99-99999)
[2017-10-31 06:00] LABS: AST (GOT) 14 IU/L (2-34); UREA NITROGEN (BUN) 27 mg/dL (9-23)
[2017-10-31 06:01] LABS: ALT (GPT) 6 IU/L (3-49)
[2017-10-31 06:02] LABS: LIPASE 12 U/L (1.0-51.0)
[2017-10-31] MEDS ORDERED: VISINE TEARS DR15 ML BOTH EYES (08:54)
[2017-10-31] MEDS ORDERED: TUMS500 MG PO (08:56)
[2017-11-01] VITALS (20 sets, daily range): BP systolic 117–167; BP diastolic 38–91
[2017-11-01 06:04] LABS: CHLORIDE 104 MEQ/L (99-109); CREATININE 2.1 MG/DL (0.6-1.3); GFR ESTIMATE (CALCULATED) 42 mL/min/ (58.99-99999); GLUCOSE 82 mg/dL (70-99); POTASSIUM 3.6 MEQ/L (3.7-5.4); SODIUM 143 MEQ/L (136-147); UREA NITROGEN (BUN) 26 mg/dL (9-23)
[2017-11-02] VITALS (17 sets, daily range): BP systolic 127–161; BP diastolic 48–74
[2017-11-02 19:55] LABS: BASOPHIL (%) 0.2 % (0-1); EOSINOPHIL (%) 4.1 % (0-5); EOSINOPHIL COUNT 0.4 K/uL (0-0.3); HEMATOCRIT 24.3 % (38.0-50.0); HEMOGLOBIN 8.2 G/DL (12.5-16.6); IMMATURE GRANULOCYTE (%) 0.5 % (0.0-0.7); LYMPHOCYTE (%) 10.6 % (15-42); LYMPHOCYTE COUNT 1.1 K/uL (1.0-2.8); MCH 27.2 PG (29.0-34.0); MCHC 33.7 G/DL (30.0-36.0); MCV 80.5 FL (86-99); MONOCYTE (%) 9.6 % (3-12); NEUTROPHIL COUNT 7.7 K/uL (1.8-6.4); PLATELET COUNT 290 K/uL (156-360); RBC DIS.WIDTH-CV 16.6 % (11.8-14.6); RBC DIS.WIDTH-SD 48.4 % (39-53); RED BLOOD COUNT 3.02 M/uL (4.00-5.50); WHITE BLOOD COUNT 10.3 K/uL (4.1-10.2)
[2017-11-02 20:11] LABS: CHLORIDE 96 MEQ/L (99-109); CREATININE 2.1 MG/DL (0.6-1.3); GFR ESTIMATE (CALCULATED) 42 mL/min/ (58.99-99999); GLUCOSE 92 mg/dL (70-99); MAGNESIUM 1.7 mg/dl (1.3-2.7); PHOSPHORUS 2.8 mg/dL (2.5-4.9); POTASSIUM 3.1 MEQ/L (3.7-5.4); SODIUM 136 MEQ/L (136-147); UREA NITROGEN (BUN) 22 mg/dL (9-23)
[2017-11-03 01:12] VITALS: BP 183/65
[2017-11-03 05:15] VITALS: BP 163/74
[2017-11-03 15:00] VITALS: BP 156/68
[2017-11-03 15:42] VITALS: BP 132/62
[2017-11-03 20:30] VITALS: BP 133/72
[2017-11-04] VITALS (7 sets, daily range): BP systolic 126–159; BP diastolic 56–78
[2017-11-04 06:48] LABS: BASOPHIL (%) 0.7 % (0-1); BASOPHIL COUNT 0.1 K/uL (0-0.1); EOSINOPHIL (%) 4.8 % (0-5); EOSINOPHIL COUNT 0.4 K/uL (0-0.3); HEMATOCRIT 25.7 % (38.0-50.0); HEMOGLOBIN 8.4 G/DL (12.5-16.6); IMMATURE GRANULOCYTE (%) 0.6 % (0.0-0.7); LYMPHOCYTE (%) 16.6 % (15-42); LYMPHOCYTE COUNT 1.4 K/uL (1.0-2.8); MCH 26.5 PG (29.0-34.0); MCHC 32.7 G/DL (30.0-36.0); MCV 81.1 FL (86-99); MONOCYTE (%) 12.6 % (3-12); MONOCYTE COUNT 1.1 K/uL (0-0.8); NEUTROPHIL (%) 64.7 % (45-76); NEUTROPHIL COUNT 5.5 K/uL (1.8-6.4); PLATELET COUNT 305 K/uL (156-360); RBC DIS.WIDTH-CV 16.4 % (11.8-14.6); RBC DIS.WIDTH-SD 48.6 % (39-53); RED BLOOD COUNT 3.17 M/uL (4.00-5.50); WHITE BLOOD COUNT 8.5 K/uL (4.1-10.2)
[2017-11-04 07:30] LABS: CHLORIDE 99 MEQ/L (99-109); CREATININE 2.3 MG/DL (0.6-1.3); GFR ESTIMATE (CALCULATED) 38 mL/min/ (58.99-99999); GLUCOSE 96 mg/dL (70-99); POTASSIUM 3.6 MEQ/L (3.7-5.4); SODIUM 139 MEQ/L (136-147); UREA NITROGEN (BUN) 22 mg/dL (9-23)
[2017-11-04 09:58] LABS: BASE EXCESS 9.1 mEq/L (-3 to +3); BICARBONATE 34.5 mEq/L (22-26); CARBOXY HGB 2.3 % (0-5); METHEMOGLOBIN 1.6 % (0-1.5); PCO2 52 mm Hg (35-45); PO2 52 mm Hg (80-100); SITE RR; pH 7.43 (7.35-7.45)
[2017-11-04 09:59] LABS: DEVICE HEATED HF NC; O2 FLOW 30 L/MIN
[2017-11-04 10:00] LABS: FI02 60 %
[2017-11-05 03:28] VITALS: BP 141/67
[2017-11-05 06:19] LABS: BASOPHIL (%) 0.5 % (0-1); EOSINOPHIL (%) 5.9 % (0-5); EOSINOPHIL COUNT 0.5 K/uL (0-0.3); HEMATOCRIT 25.3 % (38.0-50.0); HEMOGLOBIN 8.2 G/DL (12.5-16.6); IMMATURE GRANULOCYTE (%) 0.6 % (0.0-0.7); LYMPHOCYTE (%) 18.8 % (15-42); LYMPHOCYTE COUNT 1.5 K/uL (1.0-2.8); MCH 26.1 PG (29.0-34.0); MCHC 32.4 G/DL (30.0-36.0); MCV 80.6 FL (86-99); MONOCYTE (%) 11.9 % (3-12); NEUTROPHIL (%) 62.3 % (45-76); PLATELET COUNT 311 K/uL (156-360); RBC DIS.WIDTH-CV 16.6 % (11.8-14.6); RBC DIS.WIDTH-SD 48.1 % (39-53); RED BLOOD COUNT 3.14 M/uL (4.00-5.50); WHITE BLOOD COUNT 8.1 K/uL (4.1-10.2)
[2017-11-05 06:49] LABS: CHLORIDE 99 MEQ/L (99-109); CREATININE 2.7 MG/DL (0.6-1.3); GFR ESTIMATE (CALCULATED) 31 mL/min/ (58.99-99999); GLUCOSE 79 mg/dL (70-99); SODIUM 140 MEQ/L (136-147); UREA NITROGEN (BUN) 27 mg/dL (9-23)
[2017-11-05 07:20] VITALS: BP 121/56
[2017-11-05 12:02] VITALS: BP 120/60
[2017-11-05 16:07] VITALS: BP 121/61
[2017-11-05 17:25] VITALS: BP 106/52
[2017-11-05 20:06] VITALS: BP 116/56
[2017-11-06 00:22] VITALS: BP 122/59
[2017-11-06 03:51] VITALS: BP 118/50
[2017-11-06 06:06] LABS: BASOPHIL (%) 0.3 % (0-1); EOSINOPHIL (%) 5.3 % (0-5); EOSINOPHIL COUNT 0.4 K/uL (0-0.3); HEMATOCRIT 24.2 % (38.0-50.0); HEMOGLOBIN 7.9 G/DL (12.5-16.6); IMMATURE GRANULOCYTE (%) 0.6 % (0.0-0.7); LYMPHOCYTE (%) 15.1 % (15-42); LYMPHOCYTE COUNT 1.2 K/uL (1.0-2.8); MCH 26.4 PG (29.0-34.0); MCHC 32.6 G/DL (30.0-36.0); MCV 80.9 FL (86-99); MONOCYTE (%) 11.1 % (3-12); MONOCYTE COUNT 0.9 K/uL (0-0.8); NEUTROPHIL (%) 67.6 % (45-76); NEUTROPHIL COUNT 5.4 K/uL (1.8-6.4); PLATELET COUNT 295 K/uL (156-360); RBC DIS.WIDTH-CV 16.6 % (11.8-14.6); RBC DIS.WIDTH-SD 48.7 % (39-53); RED BLOOD COUNT 2.99 M/uL (4.00-5.50)
[2017-11-06 06:28] LABS: CHLORIDE 98 MEQ/L (99-109); CREATININE 3.1 MG/DL (0.6-1.3); GFR ESTIMATE (CALCULATED) 27 mL/min/ (58.99-99999); GLUCOSE 85 mg/dL (70-99); POTASSIUM 3.6 MEQ/L (3.7-5.4); SODIUM 138 MEQ/L (136-147); UREA NITROGEN (BUN) 32 mg/dL (9-23)
[2017-11-06 08:15] VITALS: BP 120/58
[2017-11-06 11:46] VITALS: BP 125/55
[2017-11-06 17:14] VITALS: BP 127/59
[2017-11-06 20:00] VITALS: BP 102/74
[2017-11-07] VITALS (7 sets, daily range): BP systolic 115–152; BP diastolic 52–92
[2017-11-07 06:30] LABS: BASOPHIL (%) 0.5 % (0-1); EOSINOPHIL (%) 5.9 % (0-5); EOSINOPHIL COUNT 0.5 K/uL (0-0.3); HEMATOCRIT 24.9 % (38.0-50.0); HEMOGLOBIN 7.9 G/DL (12.5-16.6); IMMATURE GRANULOCYTE (%) 0.8 % (0.0-0.7); LYMPHOCYTE (%) 20.7 % (15-42); LYMPHOCYTE COUNT 1.6 K/uL (1.0-2.8); MCHC 31.7 G/DL (30.0-36.0); MCV 81.9 FL (86-99); MONOCYTE (%) 10.3 % (3-12); MONOCYTE COUNT 0.8 K/uL (0-0.8); NEUTROPHIL (%) 61.8 % (45-76); NEUTROPHIL COUNT 4.7 K/uL (1.8-6.4); PLATELET COUNT 333 K/uL (156-360); RBC DIS.WIDTH-CV 16.6 % (11.8-14.6); RBC DIS.WIDTH-SD 49.6 % (39-53); RED BLOOD COUNT 3.04 M/uL (4.00-5.50); WHITE BLOOD COUNT 7.6 K/uL (4.1-10.2)
[2017-11-07 06:56] LABS: CHLORIDE 99 MEQ/L (99-109); CREATININE 2.8 MG/DL (0.6-1.3); GFR ESTIMATE (CALCULATED) 30 mL/min/ (58.99-99999); GLUCOSE 87 mg/dL (70-99); POTASSIUM 4.1 MEQ/L (3.7-5.4); SODIUM 139 MEQ/L (136-147); UREA NITROGEN (BUN) 31 mg/dL (9-23)
[2017-11-08] VITALS: BP 121/58
[2017-11-08 04:00] VITALS: BP 118/56
[2017-11-08 07:09] LABS: BASOPHIL (%) 0.4 % (0-1); EOSINOPHIL (%) 4.9 % (0-5); EOSINOPHIL COUNT 0.4 K/uL (0-0.3); HEMATOCRIT 23.2 % (38.0-50.0); HEMOGLOBIN 7.7 G/DL (12.5-16.6); IMMATURE GRANULOCYTE (%) 0.6 % (0.0-0.7); LYMPHOCYTE (%) 14.2 % (15-42); LYMPHOCYTE COUNT 1.1 K/uL (1.0-2.8); MCHC 33.2 G/DL (30.0-36.0); MCV 81.4 FL (86-99); MONOCYTE (%) 10.8 % (3-12); MONOCYTE COUNT 0.9 K/uL (0-0.8); NEUTROPHIL (%) 69.1 % (45-76); NEUTROPHIL COUNT 5.5 K/uL (1.8-6.4); PLATELET COUNT 314 K/uL (156-360); RBC DIS.WIDTH-CV 16.8 % (11.8-14.6); RBC DIS.WIDTH-SD 49.5 % (39-53); RED BLOOD COUNT 2.85 M/uL (4.00-5.50); WHITE BLOOD COUNT 7.9 K/uL (4.1-10.2)
[2017-11-08 07:38] LABS: CHLORIDE 102 MEQ/L (99-109); CREATININE 2.7 MG/DL (0.6-1.3); GFR ESTIMATE (CALCULATED) 31 mL/min/ (58.99-99999); GLUCOSE 78 mg/dL (70-99); POTASSIUM 3.9 MEQ/L (3.7-5.4); SODIUM 140 MEQ/L (136-147); UREA NITROGEN (BUN) 31 mg/dL (9-23)
[2017-11-08 07:48] VITALS: BP 122/58
[2017-11-08 11:38] VITALS: BP 115/55
[2017-11-08 15:06] VITALS: BP 129/59
[2017-11-08 20:20] VITALS: BP 115/55
[2017-11-09] VITALS (11 sets, daily range): BP systolic 112–143; BP diastolic 53–64
[2017-11-09 07:12] LABS: BASOPHIL (%) 0.4 % (0-1); EOSINOPHIL (%) 4.3 % (0-5); EOSINOPHIL COUNT 0.4 K/uL (0-0.3); HEMATOCRIT 22.9 % (38.0-50.0); HEMOGLOBIN 7.3 G/DL (12.5-16.6); IMMATURE GRANULOCYTE (%) 0.5 % (0.0-0.7); LYMPHOCYTE (%) 14.4 % (15-42); LYMPHOCYTE COUNT 1.2 K/uL (1.0-2.8); MCH 26.1 PG (29.0-34.0); MCHC 31.9 G/DL (30.0-36.0); MCV 81.8 FL (86-99); MONOCYTE (%) 10.4 % (3-12); MONOCYTE COUNT 0.8 K/uL (0-0.8); NEUTROPHIL COUNT 5.6 K/uL (1.8-6.4); PLATELET COUNT 330 K/uL (156-360); RBC DIS.WIDTH-CV 16.9 % (11.8-14.6); RBC DIS.WIDTH-SD 50.1 % (39-53); WHITE BLOOD COUNT 8.1 K/uL (4.1-10.2)
[2017-11-09 07:35] LABS: CHLORIDE 102 MEQ/L (99-109); CREATININE 2.5 MG/DL (0.6-1.3); GFR ESTIMATE (CALCULATED) 34 mL/min/ (58.99-99999); GLUCOSE 91 mg/dL (70-99); POTASSIUM 3.7 MEQ/L (3.7-5.4); SODIUM 140 MEQ/L (136-147); UREA NITROGEN (BUN) 29 mg/dL (9-23)
[2017-11-10 00:10] VITALS: BP 125/58
[2017-11-10 00:19] VITALS: BP 129/58
[2017-11-10 06:42] LABS: BASOPHIL (%) 0.4 % (0-1); EOSINOPHIL (%) 4.9 % (0-5); EOSINOPHIL COUNT 0.4 K/uL (0-0.3); HEMATOCRIT 25.7 % (38.0-50.0); HEMOGLOBIN 8.5 G/DL (12.5-16.6); IMMATURE GRANULOCYTE (%) 0.5 % (0.0-0.7); LYMPHOCYTE (%) 13.4 % (15-42); MCHC 33.1 G/DL (30.0-36.0); MCV 81.6 FL (86-99); MONOCYTE (%) 11.4 % (3-12); MONOCYTE COUNT 0.8 K/uL (0-0.8); NEUTROPHIL (%) 69.4 % (45-76); NEUTROPHIL COUNT 5.1 K/uL (1.8-6.4); PLATELET COUNT 324 K/uL (156-360); RBC DIS.WIDTH-CV 16.9 % (11.8-14.6); RBC DIS.WIDTH-SD 50.1 % (39-53); RED BLOOD COUNT 3.15 M/uL (4.00-5.50); WHITE BLOOD COUNT 7.4 K/uL (4.1-10.2)
[2017-11-10 07:05] LABS: CHLORIDE 102 MEQ/L (99-109); CREATININE 2.6 MG/DL (0.6-1.3); GFR ESTIMATE (CALCULATED) 33 mL/min/ (58.99-99999); GLUCOSE 83 mg/dL (70-99); POTASSIUM 3.8 MEQ/L (3.7-5.4); SODIUM 139 MEQ/L (136-147); UREA NITROGEN (BUN) 30 mg/dL (9-23)
[2017-11-10 11:00] VITALS: BP 130/60
[2017-11-10 15:47] VITALS: BP 136/59
[2017-11-10 23:41] VITALS: BP 134/60
[2017-11-11 08:17] VITALS: BP 117/58
[2017-11-11 09:10] LABS: CHLORIDE 105 MEQ/L (99-109); CREATININE 2.4 MG/DL (0.6-1.3); GFR ESTIMATE (CALCULATED) 36 mL/min/ (58.99-99999); GLUCOSE 87 mg/dL (70-99); POTASSIUM 4.3 MEQ/L (3.7-5.4); SODIUM 140 MEQ/L (136-147); UREA NITROGEN (BUN) 27 mg/dL (9-23)
[2017-11-11] MEDS ORDERED: SPIRIVA RESPIMAT4 GM IH (10:31)
[2017-11-11] MEDS ORDERED: GABAPENTIN100 MG PO (10:31)
[2017-11-11] MEDS ORDERED: DULERA 100 MCG/13 GM IH (10:32)
== END 2017-11-11 15:48 | DRG 190 ==
LOC: EME → EDBD 04:06 → EDOF 09:26 → 4WEST 09:26 → 5SOUTH 09:26 → ENRESERV 09:28 → EDOF 09:42 → 4WEST 10:30 → ENRESERV 11-03 09:34 → 4WEST 11-03 14:56 → 5SOUTH 11-03 15:04 → ENPENDDIS 11-11 12:22 → 5SOUTH 11-11 15:48
PROVIDERS: Emergency Medicine; Family Medicine; Internal Medicine; Internal Medicine Critical Care Medicine; Internal Medicine Nephrology
PROC: 5A09357 Assistance with Respiratory Ventilation, Less than 24 Consecutive Hours, Continuous Positive Airway Pressure (ICD-10-PCS; principal; 2017-11-04)
PROC: 30233N1 Transfusion of Nonautologous Red Blood Cells into Peripheral Vein, Percutaneous Approach (ICD-10-PCS; 2017-11-09)
DX: J44.1 Chronic obstructive pulmonary disease with (acute) exacerbation (principal); J96.21 Acute and chronic respiratory failure with hypoxia; I13.0 Hypertensive heart and chronic kidney disease with heart failure and stage 1 through stage 4 chronic kidney disease, or unspecified chronic kidney disease; I50.43 Acute on chronic combined systolic (congestive) and diastolic (congestive) heart failure; J96.22 Acute and chronic respiratory failure with hypercapnia; E66.2 Morbid (severe) obesity with alveolar hypoventilation; Z68.43 Body mass index [BMI] 50.0-59.9, adult; N18.3 Chronic kidney disease, stage 3 (moderate); I48.2 Chronic atrial fibrillation; Z99.81 Dependence on supplemental oxygen; N17.9 Acute kidney failure, unspecified; T50.2X5A Adverse effect of carbonic-anhydrase inhibitors, benzothiadiazides and other diuretics, initial encounter; Z87.891 Personal history of nicotine dependence; I42.2 Other hypertrophic cardiomyopathy; I27.29 Other secondary pulmonary hypertension; I08.3 Combined rheumatic disorders of mitral, aortic and tricuspid valves; I25.10 Atherosclerotic heart disease of native coronary artery without angina pectoris; D63.1 Anemia in chronic kidney disease; Z74.01 Bed confinement status; E87.6 Hypokalemia; E78.5 Hyperlipidemia, unspecified; E11.22 Type 2 diabetes mellitus with diabetic chronic kidney disease; I27.81 Cor pulmonale (chronic); G62.9 Polyneuropathy, unspecified; I49.3 Ventricular premature depolarization; K21.9 Gastro-esophageal reflux disease without esophagitis; Z86.73 Personal history of transient ischemic attack (TIA), and cerebral infarction without residual deficits
CPT/HCPCS: 36600; 71045; 71250; 80048; 80053; 82803; 82948; 83605; 83690; 83735; 83880; 84100; 84484; 85025; 85027; 85610; 85730; 86850; 86900; 86901; 86920; 87040; 87506; 87641; 93005; 93306; 94002; 94003; 94640; 94640 76; 94660; 94760; 94799; 99202; 99281; 99285; J0881; J1650; J1940; J1956; J7030; P9016